=== PATIENT | female | born 1995 | race African-American/Black ===

== ENCOUNTER 2018-10-16 18:01 | Emergency (ER) | payer BC ==
[~2018-10-16] VITALS: Ht 160 cm; Wt 72.3 kg
[~2018-10-16 18:01] MED LIST: DEPO-PROVER150 MG/M1 IM; NO HOME MEDICATIONS; TUSS PO
[2018-10-16 18:11] VITALS: TEMP 98.6
[2018-10-16 18:35] VITALS: BP 137/60
[2018-10-16] MEDS ORDERED: ANUSOL-HC2.5% RC (18:55)
[2018-10-16] MEDS ORDERED: ANECREAMREC2 TOP (18:55)
[2018-10-16] MEDS ORDERED: MIRALAX238G PO (18:55)
[2018-10-16 19:25] VITALS: PULSE 82
== END 2018-10-16 19:25 | disposition home or self-care (01) ==
LOC: COL.ER 18:01
DX: K64.5 Perianal venous thrombosis (principal); R55 Syncope and collapse; F17.210 Nicotine dependence, cigarettes, uncomplicated